=== PATIENT | female | born 1995 | race Asian ===

== ENCOUNTER 2019-06-05 20:27 | Emergency (ER) | payer BC ==
[~2019-06-05] VITALS: Ht 157.5 cm; Wt 47.6 kg
[2019-06-05 20:47] VITALS: Ht 157.5 cm; Wt 47.6 kg
[2019-06-05 23:25] VITALS: BP 121/80
== END 2019-06-05 23:25 | disposition home or self-care (01) ==
LOC: ED 20:27
DX: S93.402A Sprain of unspecified ligament of left ankle, initial encounter (principal); X58.XXXA Exposure to other specified factors, initial encounter; Y93.89 Activity, other specified; Y92.89 Other specified places as the place of occurrence of the external cause; Y99.8 Other external cause status